=== PATIENT | female | born 2000 | race Caucasian/White ===

== ENCOUNTER 2022-06-28 14:43 | Emergency (ER) | payer BC ==
[~2022-06-28] VITALS: Ht 152.4 cm; Wt 61.2 kg
[2022-06-28 14:45] VITALS: BP_SYST 94
--- NOTE | 2022-06-28 14:55 | NUR ---
TRIAGED AND BROUGHT BACK TO BED #7 AND REPORT GIVEN TO NURSE
[2022-06-28 15:32] LABS: BASOPHILS % (AUTO) 0.5 % (0.0-2.0); EOSINOPHILS % (AUTO) 0.6 % (0.0-4.0); HEMATOCRIT 26.1 % (36-48); HEMOGLOBIN 7.6 g/dL (12.0-16.0); LYMPHOCYTES # (AUTO) 2.2 K/uL (1.0-5.5); LYMPHOCYTES % (AUTO) 34.5 % (20.5-51.5); MEAN CORPUSCULAR HEMOGLOBIN 17 pg (27-31); MEAN CORPUSCULAR HGB CONC 29 % (32-36); MEAN CORPUSCULAR VOLUME 58 fL (79.0-98.0); MONOCYTES # (AUTO) 0.6 K/uL (0.0-1.0); MONOCYTES % (AUTO) 8.8 % (1.7-9.3); NEUTROPHILS # (AUTO) 3.6 K/uL (1.8-7.7); NEUTROPHILS % (AUTO) 55.6 % (40.0-70.0); PLATELET COUNT (AUTO) 403 K/uL (130-430); RED BLOOD CELL COUNT(AUTO) 4.49 MIL/uL (4.2-6.2); RED CELL DISTRIBUTION WIDTH 21.5 % (9.0-15.0); WHITE BLOOD COUNT (AUTO) 6.5 K/uL (4.5-11.0)
--- NOTE | 2022-06-28 15:51 | NUR ---
PT HERE WITH MILD VAG BLEED FOR 2 DAYS AGO, DENIES ANY PAIN. STATES SHE IS NOT . DENIES N/V/D. SKIN W/D/I. RESP EVEN AND UNLABORED, ON RA @98%. WILL CONT TO MONITOR.
[2022-06-28 15:54] LABS: CALCIUM 9.2 mg/dL (8.4-11.0); CREATININE 0.61 mg/dL (0.55-1.30)
[2022-06-28] MEDS ORDERED: FERR-69 PO (16:10)
--- NOTE | 2022-06-28 16:41 | NUR ---
Patient given written and verbal discharge instructions and verbalizes understanding. ER MD discussed with patient the results and treatment provided. Patient in stable condition. ID arm band removed. Patient educated on pain management and to follow up with PMD. Pain Scale [0]. Opportunity for questions provided and answered. Medication side effect fact sheet provided.
[2022-06-28 16:43] VITALS: BP_SYST 94
== END 2022-06-28 16:43 | disposition home or self-care (01) ==
LOC: SED 14:43
DX: N93.9 Abnormal uterine and vaginal bleeding, unspecified (principal); R10.2 Pelvic and perineal pain; Z79.899 Other long term (current) drug therapy
CPT/HCPCS: 36415; 80048; 81002; 81025; 85025; 86886; 86900; 86901; 99284

== ENCOUNTER 2022-08-05 15:07 | Emergency (ER) | payer BC ==
[~2022-08-05] VITALS: Ht 152.4 cm; Wt 63.5 kg
[~2022-08-05 15:07] MED LIST: FERR-69 PO
[2022-08-05 15:27] VITALS: BP_SYST 119
== END 2022-08-05 18:00 ==
LOC: SED 15:07
DX: T74.21XA Adult sexual abuse, confirmed, initial encounter (principal); Z79.899 Other long term (current) drug therapy; Y07.9 Unspecified perpetrator of maltreatment and neglect
CPT/HCPCS: 99283